=== PATIENT | female | born 1950 | race Caucasian/White ===

== ENCOUNTER → 2020-06-14 | Outpatient (CLI) | payer MEDICARE ==
--- NOTE | 2020-06-14 15:54 | RAD ---
Exam performed: 2 views of the chest. Indication: Reason: SHORT OF AIR / Spl. Instructions: / History: Date of Service: 06/14/2020 11:02 AM. Comparison : None available Findings: PA and lateral radiographs of the chest reveal a normal cardiomediastinal contour. The lungs are hype rinflated, however clear. No pleural fluid is seen. The visualized osseous structures are unremarkab le. Impression: No acute cardiopulmonary process seen. Mild emphysematous lungs. Electronically signed by: Sima Cardenas MD (06/14/2020 3:52 PM) [id number]
== END ==
LOC: RAD 10:50
PROVIDERS: ATTEND Internal Medicine Pulmonary Disease
DX: J43.9 Emphysema, unspecified (principal)
CPT/HCPCS: 71046